=== PATIENT | male | born 1945 | race Caucasian/White ===

== ENCOUNTER → 2016-05-25 | Day surgery (SDC) | payer OTHER ==
[~2016-05-25] MED LIST: ALDACTONE25 MG PO; ALEVE220 M1 PO; ASPIRIN81 M2 PO; ATORVASTATIN CA80 MG PO; CARDURA8 MG PO; CARVEDILOL12.5 MG PO; SUDAFED PE SIN1 EACH PO
--- NOTE | ~2016-05-25 | OR ---
Unit #: [id number] #: [id number] Patient: VERA HERNANDEZ [id number] [address] [id number] MR#: [id number] NAME: VERA HERNANDEZ. ROOM: Date of Procedure: 05/25/2016 Admission Date: 05/25/2016 Surgeon: Christopher Acosta M.D. : 1945 Attending Physician: Christopher Acosta M.D. Primary Care Physician: Vera Lazaro Jr., M.D. OPERATIVE REPORT JOB NOTE: CC: [facility] PREOPERATIVE DIAGNOSES Back pain, radiculopathy, degenerative disk disease, spinal stenosis. POSTOPERATIVE DIAGNOSES Back pain, radiculopathy, degenerative disk disease, spinal stenosis. PROCEDURE PERFORMED Lumbar epidural steroid injection with intravenous sedation and fluoroscopic guidance for needle localization. INDICATIONS FOR PROCEDURE The patient is a 70-year-old male, who had a return of back and this time right greater than left lower extremity pain due to known degenerative disk disease and spinal stenosis. He has last treated with a single epidural steroid injection 1 year ago. He did well for 10 months. The pain has been increasing over the last 2 months or so especially to the right side. Based on history, pathology, and symptomatology, plan is to repeat epidural steroid injection. DESCRIPTION OF PROCEDURE The patient was placed in a seated position. Standard monitors were applied. Sterile prep and drape then of the lumbar area was performed. The skin at the L5 level was localized with 1% lidocaine. An 18-gauge Hustead needle was then advanced via loss of resistance technique and fluoroscopic guidance in toward the epidural space. After confirming proper positioning with fluoroscopy and radiographic contrast, 80 mg of Depo-Medrol and 4 mL of 0.125% bupivacaine were deposited. The patient tolerated the procedure otherwise well and was discharged to the recovery room in stable condition. Dictated by... Christopher Acosta M.D. LHP/modl TD: 05/25/2016 23:31 JOB #: [id number] CC: Vera Ignacio M.D. Unit #: [id number] #: [id number] Patient: VERA HERNANDEZ OPERATIVE REPORT Page 1 of 1 X Christopher Acosta MD X PROCEDURE OPERATIVE NOTE
== END | disposition home or self-care (01) ==
LOC: CCSC 08:38
DX: M51.16 Intervertebral disc disorders with radiculopathy, lumbar region (principal); M48.06 Spinal stenosis, lumbar region; I10 Essential (primary) hypertension; F32.9 Major depressive disorder, single episode, unspecified
CPT/HCPCS: J1040; J2250

== ENCOUNTER 2016-08-20 14:53 | Emergency (ER) | payer OTHER ==
[~2016-08-20] VITALS: Ht 177.8 cm; Wt 104.3 kg
== END 2016-08-20 18:00 | disposition home or self-care (01) ==
LOC: CFTX 14:53 → CED 14:53 → CFTX 16:43
DX: H65.01 Acute serous otitis media, right ear (principal)
CPT/HCPCS: 99282